=== PATIENT | male | born 1995 | race African-American/Black ===

== ENCOUNTER 2023-02-06 13:25 | Emergency (ER) | payer MEDICAID ==
[2023-02-06 13:37] VITALS: BP 141/97; PULSE 101; RESP 19; TEMP 98
[2023-02-06] MEDS ORDERED: LORAZEPAM 0.5MG TABLET PO ONE ×2 (15:45→17:00)
[2023-02-06] MEDS ORDERED: HYDR50TA55 MT (17:28)
== END 2023-02-06 18:47 | disposition home or self-care (01) ==
LOC: ER 13:25
DX: K60.3 Anal fistula (principal); F41.9 Anxiety disorder, unspecified
CPT/HCPCS: 99283

== ENCOUNTER 2023-03-24 03:00 | Emergency (ER) | payer MEDICAID ==
[~2023-03-24] VITALS: Ht 170.2 cm; Wt 58.7 kg
[~2023-03-24 03:00] MED LIST: HYDR50TA55 MT
[2023-03-24 03:08] VITALS: BP 127/82; RESP 16; TEMP 99.3; O2SAT 99
[2023-03-24 03:17] VITALS: PULSE 116
== END 2023-03-24 04:09 | disposition left against medical advice (07) ==
LOC: ER 03:00
DX: Z53.21 Procedure and treatment not carried out due to patient leaving prior to being seen by health care provider (principal)
CPT/HCPCS: 99281

== ENCOUNTER 2023-04-03 09:26 | Emergency (ER) | payer MEDICAID, OTHER ==
[~2023-04-03] VITALS: Ht 160 cm; Wt 59.0 kg
[2023-04-03 09:31] VITALS: PULSE 104
[2023-04-03 09:37] VITALS: BP 127/70; RESP 18; TEMP 98.3; O2SAT 100
== END 2023-04-03 14:38 | disposition left against medical advice (07) ==
LOC: ER 09:26
DX: R00.2 Palpitations (principal); Z98.890 Other specified postprocedural states
CPT/HCPCS: 99281